=== PATIENT | female | born 1975 | race Caucasian/White ===

== ENCOUNTER → 2019-07-12 | Outpatient (CLI) | payer BC ==
[~2019-07-12] MED LIST: ALPR.5; BUPR150ER PO; CODBUTACEC PO; ESCI10 PO; IBUP800 PO; IRON50; MULVITMINE; PROM25 PO; SUMA25 PO; TOPI100 PO
[2019-07-14 15:07] LABS: HPV 16 Negative (Negative); HPV 18 Negative (Negative); HPV OTHER HR TYPES Negative (Negative)
== END | disposition home or self-care (01) ==
LOC: LAB SHORT 18:00 → LAB 18:00
PROVIDERS: Obstetrics & Gynecology Gynecology
DX: Z12.4 Encounter for screening for malignant neoplasm of cervix (principal)
CPT/HCPCS: 87624; G0123